=== PATIENT | female | born 1985 | race Caucasian/White ===

== ENCOUNTER 2016-07-03 13:46 | Emergency (ER) | payer OTHER ==
[2016-07-03 13:59] VITALS: BP 121/71; PULSE 76; TEMP 97.9; BMI 28.2
--- NOTE | 2016-07-09 10:30 | EKG ---
Test Reason : Blood Pressure : / mmHG Vent. Rate : 072 BPM Atrial Rate : 072 BPM P-R Int : 136 ms QRS Dur : 084 ms QT Int : 390 ms P-R-T Axes : 070 014 039 degrees QTc Int : 427 ms NORMAL SINUS RHYTHM INCOMPLETE RBBB WHEN COMPARED WITH ECG OF 11-DEC-2010 18:21, NO SIGNIFICANT CHANGE WAS FOUND Confirmed by SERA MASSEY MD ([id number]) on 07/09/2016 10:30:30 AM Referred By: Confirmed By:ESRA MASSEY MD
== END 2016-07-03 16:28 | disposition left against medical advice (07) ==
LOC: JER 13:46
DX: Z53.21 Procedure and treatment not carried out due to patient leaving prior to being seen by health care provider (principal)
CPT/HCPCS: 93005; 93010; 99281-25

== ENCOUNTER 2017-10-07 11:53 | Emergency (ER) | payer OTHER ==
[2017-10-07 12:04] VITALS: BP 127/88; PULSE 92; TEMP 101.5; BMI 32.5
[2017-10-07] MEDS ORDERED: ACETAMINOPHEN 500 MG TABLET (FP) PO ONE (12:20)
--- NOTE | 2017-10-07 12:25 | PDOC ---
History of Present Illness - General Chief Complaint: Urinary Problem Stated Complaint: BODYACHES, COLD SYMPTOMS Time Seen by Provider: 10/07/17 12:07 History Source: Patient Exam Limitations: No Limitations - History of Present Illness Travel History: No Initial Comments: 10/07/17 12:21 This is a 32-year-old woman without significant past medical history presents emergency Department with 1 week of dysuria and now with lower back pain. Patient states she's been febrile over this time and is been taking 400 mg of Motrin intermittently to help control pains and fever. Patient states she took some [id number] medication for symptomatically relief which has not helped her symptoms. She denies nausea, vomiting, abdominal pain, hematuria, rectal bleeding. Patient states she is currently menstruating. Past History - Past Medical History Allergies/Adverse Reactions: Allergies Allergy/AdvReac Type Severity Reaction Status Date / Time No Known Allergies Allergy Verified 10/07/17 12:00 Home Medications: Ambulatory Orders Cephalexin Monohydrate [Keflex -] 500 mg PO Q8H #42 capsule 10/07/17 COPD: No Other medical history: DENIES. - Surgical History Abdominal Surgery: Yes (TUBAL LIGATION) - Suicide/Smoking/Psychosocial Hx Smoking History: Never smoked Hx Alcohol Use: No Drug/Substance Use Hx: No Review of Systems - Review of Systems Able to Perform ROS?: Yes Is the patient limited Nepali proficient: No Constitutional: Yes: See HPI HEENTM: No: Symptoms Reported Respiratory: No: Symptoms reported Cardiac (ROS): No: Symptoms Reported ABD/GI: No: Symptoms Reported : Yes: See HPI Musculoskeletal: No: Symptoms Reported Integumentary: No: Symptoms Reported Neurological: No: Symptoms reported *Physical Exam - Vital Signs Last Vital Signs Temp Pulse Resp BP Pulse Ox 101.5 F H 92 H 15 127/88 98 10/07/17 12:00 10/07/17 12:00 10/07/17 12:00 10/07/17 12:00 10/07/17 12:00 - Physical Exam General Appearance: Yes: Appropriately Dressed. No: Apparent Distress HEENT: positive: Normal ENT Inspection Neck: positive: Trachea midline, Supple Respiratory/Chest: positive: Lungs Clear, Normal Breath Sounds. negative: Respiratory Distress, Accessory Muscle Use Cardiovascular: positive: Regular Rhythm, Regular Rate, S1, S2. negative: Edema , Murmur Gastrointestinal/Abdominal: positive: Normal Bowel Sounds, Soft. negative: Tender Musculoskeletal: positive: Normal Inspection. negative: CVA Tenderness Extremity: positive: Normal Inspection Integumentary: positive: Normal Color, Dry, Warm Neurologic: positive: Alert, Normal Response ED Treatment Course - LABORATORY CBC & Chemistry Diagram: 10/07/17 12:20 10/07/17 12:20 Medical Decision Making - Medical Decision Making 10/07/17 12:24 A/P: 32-year-old woman with 1 week of UTI symptoms Abdomen soft nontender nondistended. No CVA tenderness Currently febrile with temperature 101.5 in triage. Tylenol, UA, urine , urine culture, CBC, CMP 10/07/17 13:07 Urinalysis reveals 2+ leuk esterase, 3+ blood, trace ketones, 2+ protein and 1+ glucose. WBCs of 842, RBCs of 2067. Nitrates negative. CBC reveals a white count of 6200. BUN/creatinine are 9/0.7. Given patient's symptoms I will treat for pyelonephritis as an outpatient. *DC/Admit/Observation/Transfer Diagnosis at time of Disposition: Pyelonephritis - Discharge Dispostion Disposition: HOME Condition at time of disposition: Fair Decision to Admit order: No - Prescriptions Prescriptions: Cephalexin Monohydrate [Keflex -] 500 mg PO Q8H #42 capsule - Referrals Referrals: Shanice Lizarraga MD [Primary Care Provider] - - Patient Instructions Printed Discharge Instructions: DI for Kidney Infection Additional Instructions: Rest, drink lots of fluids: Teas, water, soups Avoid contact with others until fevers and symptoms resolved Lots of handwashing and good hygiene Continue [id number] medications for symptomatic relief Tylenol or Motrin for fever and pain Continue all of antibiotics until completed Followup with private physician in one week for repeat urinalysis/reevaluation Return to emergency department for worsened symptoms, fevers, dehydration - Post Discharge Activity
[2017-10-07 12:31] LABS: BASO % 0.6 % (0-2.0); HEMATOCRIT 32.6 % (32.4-45.2); HEMOGLOBIN 10.9 GM/dL (10.7-15.3); LYMPH % 7.6 % (8-40); MCH 25.6 pg (25.7-33.7); MCHC 33.5 g/dl (32.0-36.0); MEAN CELL VOLUME 76.6 fl (80-96); MEAN PLT VOLUME 9.1 fl (7.5-11.1); MONO % 2.4 % (3.8-10.2); NEUT % 88.4 % (42.8-82.8); PLATELET COUNT 177 K/MM3 (134-434); RBC 4.26 M/mm3 (3.60-5.2); WHITE BLOOD COUNT 6.2 K/mm3 (4.0-10.0)
[2017-10-07] MEDS ORDERED: ACETAMINOPHEN 325 MG TABLET (FP) ONE (12:31)
[2017-10-07 12:35] LABS: ADD RBC MORPHOLOGY YES
[2017-10-07 12:44] LABS: URINE APPEARANCE TURBID; URINE BILIRUBIN NEGATIVE (<2.0 mg/dL); URINE COLOR AMBER; URINE GLUCOSE (UA) 1+ (NEGATIVE); URINE KETONE TRACE (NEGATIVE); URINE NITRITE NEGATIVE (NEGATIVE); URINE UROBILINOGEN NEGATIVE mg/dL (0.2-1.0)
[2017-10-07 12:46] LABS: URINE LEUK ESTERASE 2+ (NEGATIVE); URINE PROTEIN 2+ (NEGATIVE)
[2017-10-07 12:47] LABS: URINE MUCUS FEW
[2017-10-07 12:54] LABS: ALBUMIN 3.7 g/dl (3.4-5.0); ANION GAP 9 (8-16); ANISOCYTOSIS 2+; BILIRUBIN,TOTAL 0.8 mg/dL (0.2-1.0); BLOOD UREA NITROGEN 9 mg/dL (7-18); CHLORIDE 105 mmol/L (98-107); CO2 24 mmol/L (21-32); CREATININE 0.7 mg/dL (0.55-1.02); GLUCOSE,RANDOM 132 mg/dL (74-106); MACROCYTOSIS 1+; PLATELET ESTIMATE ADEQUATE; POTASSIUM 3.4 mmol/L (3.5-5.1); SGOT/AST 75 U/L (15-37); SGPT/ALT 57 U/L (12-78); SODIUM 138 mmol/L (136-145); TOT PROT 6.9 g/dl (6.4-8.2)
[2017-10-07 12:54] LABS: HCG,QUALITATIVE URINE NEGATIVE
[2017-10-07 12:55] LABS: ALK PHOS 99 U/L (45-117)
== END 2017-10-07 13:14 | disposition home or self-care (01) ==
LOC: JERFT 11:53
DX: N10 Acute pyelonephritis (principal)
CPT/HCPCS: 36415; 80053; 81003; 81015; 84703; 85025; 87086; 87186; 99281-25

== ENCOUNTER 2021-04-26 15:16 | Emergency (ER) | payer OTHER ==
[2021-04-26 15:30] VITALS: BP 110/69; PULSE 65; TEMP 98.9; BMI 25.8
[2021-04-26] MEDS ORDERED: IBUPROFEN 600 MG TABLET (FP) PO ONE (16:30)
== END 2021-04-26 18:22 | disposition home or self-care (01) ==
LOC: JERFT 15:16
DX: S06.0X0A Concussion without loss of consciousness, initial encounter (principal); W10.9XXA Fall (on) (from) unspecified stairs and steps, initial encounter
CPT/HCPCS: 70450-TC; 99284-25

== ENCOUNTER 2022-03-02 16:15 | Emergency (ER) | payer OTHER ==
[2022-03-02 16:36] VITALS: BP 118/73; PULSE 73; RESP 18; TEMP 98.1; BMI 31.8
[2022-03-02] MEDS ORDERED: TETRACAINE 0.5% HCL 0.6ML DROPPER.BOTTLE OS ONE (17:29)
[2022-03-02] MEDS ORDERED: FLUORESCEIN NA 1 EA STRIP OS ONE (17:29)
[2022-03-02] MEDS ORDERED: TETRACAINE 0.5% OPHTH SOLN 2 ML BOTTLE ONE (17:50)
[2022-03-02] MEDS ORDERED: FLUORESCEIN NA 1 EA STRIP ONE (17:50)
== END 2022-03-02 18:47 | disposition home or self-care (01) ==
LOC: JER 16:15 → JERFT 16:15
DX: S05.02XA Injury of conjunctiva and corneal abrasion without foreign body, left eye, initial encounter (principal)
CPT/HCPCS: 99283-25

== ENCOUNTER 2022-06-02 14:25 | Emergency (ER) | payer OTHER ==
[2022-06-02 14:35] VITALS: BP 109/63; PULSE 61; RESP 18; TEMP 98; BMI 33.5
[2022-06-02 19:22] LABS: BASO % 1.2 % (0-2.0); EOS % 1.6 % (0-4.5); HEMATOCRIT 25.1 % (32.4-45.2); HEMOGLOBIN 7.3 GM/dL (10.7-15.3); LYMPH % 30.7 % (8-40); MCHC 29.2 g/dl (32.0-36.0); MEAN CELL VOLUME 65.7 fl (80-96); MEAN PLT VOLUME 8.7 fl (7.5-11.1); MONO % 7.9 % (3.8-10.2); NEUT % 58.6 % (42.8-82.8); PLATELET COUNT 322 10^3/uL (134-434); RBC 3.82 M/mm3 (3.60-5.2); WHITE BLOOD COUNT 3.5 K/mm3 (4.0-10.0)
[2022-06-02 19:28] LABS: MCH 19.2 pg (25.7-33.7)
[2022-06-02 19:40] LABS: CALCIUM 8.9 mg/dL (8.5-10.1)
[2022-06-02 19:41] LABS: ALBUMIN 3.8 g/dl (3.4-5.0); BLOOD UREA NITROGEN 12.1 mg/dL (7-18)
[2022-06-02 19:44] LABS: CREATININE 0.7 mg/dL (0.55-1.3)
[2022-06-02 19:46] LABS: BILIRUBIN,TOTAL 0.6 mg/dL (0.2-1); TOT PROT 7.4 g/dl (6.4-8.2)
[2022-06-02 21:12] LABS: ANISOCYTOSIS 1+; MACROCYTOSIS 0; PLATELET ESTIMATE NORMAL
== END 2022-06-02 20:44 | disposition home or self-care (01) ==
LOC: JER 14:25
DX: D64.9 Anemia, unspecified (principal)
CPT/HCPCS: 0241U-QW; 36415; 80053; 85025; 86850; 86900; 86901; 99283-25

== ENCOUNTER 2023-05-10 07:43 | Emergency (ER) | payer OTHER ==
[2023-05-10 08:22] VITALS: BP 122/87; PULSE 65; RESP 18; TEMP 98; BMI 24.7
[2023-05-10 09:35] LABS: BASO % 0.8 % (0-2.0); EOS % 0.6 % (0-4.5); HEMATOCRIT 35.3 % (32.4-45.2); HEMOGLOBIN 11.6 GM/dL (10.7-15.3); LYMPH % 23.5 % (8-40); MCH 27.9 pg (25.7-33.7); MCHC 32.8 g/dl (32.0-36.0); MEAN CELL VOLUME 84.8 fl (80-96); MEAN PLT VOLUME 8.9 fl (7.5-11.1); MONO % 6.3 % (3.8-10.2); NEUT % 68.8 % (42.8-82.8); PLATELET COUNT 251 10^3/uL (134-434); RBC 4.16 M/mm3 (3.60-5.2); RDW 14.4 % (11.6-15.6); WHITE BLOOD COUNT 4.8 K/mm3 (4.0-10.0)
[2023-05-10 09:56] LABS: ALBUMIN 3.4 g/dl (3.4-5.0); CALCIUM 8.1 mg/dL (8.5-10.1)
[2023-05-10 09:59] LABS: CREATININE 0.6 mg/dL (0.55-1.3)
[2023-05-10 10:01] LABS: BILIRUBIN,TOTAL 0.9 mg/dL (0.2-1); TOT PROT 6.9 g/dl (6.4-8.2)
[2023-05-10 10:16] LABS: PROTHROMBIN TIME (PATIENT) 11.6 SEC (9.7-13.0)
== END 2023-05-10 11:09 | disposition home or self-care (01) ==
LOC: JER 07:43
DX: K92.1 Melena (principal); Z20.822 Contact with and (suspected) exposure to COVID-19
CPT/HCPCS: 0241U-QW; 36415; 80053; 82272; 84703; 85025; 85610; 85730; 86850; 86900; 86901; 99283-25

== ENCOUNTER 2023-10-23 15:09 | Emergency (ER) | payer OTHER ==
[2023-10-23 15:32] VITALS: BP 107/55; PULSE 56; RESP 16; TEMP 98.2; BMI 32.5
[2023-10-23 16:58] LABS: HCG,QUALITATIVE URINE Negative
[2023-10-23 17:06] LABS: URINE APPEARANCE CLEAR; URINE BILIRUBIN NEGATIVE (NEGATIVE); URINE COLOR YELLOW; URINE GLUCOSE (UA) NEGATIVE (NEGATIVE); URINE KETONE NEGATIVE (NEGATIVE); URINE LEUK ESTERASE 1+ (NEGATIVE); URINE NITRITE NEGATIVE (NEGATIVE); URINE PROTEIN NEGATIVE (NEGATIVE); URINE UROBILINOGEN 0.2 mg/dL (0.2-1.0)
[2023-10-23] MEDS ORDERED: CEPHALEXIN MONOHYDRATE 500 MG CAPSULE (UD) PO ONE (17:37)
[2023-10-23] MEDS ORDERED: ACETAMINOPHEN 500 MG TABLET (FP) PO ONE (17:42)
[2023-10-23] MEDS ORDERED: ACETAMINOPHEN 500 MG TABLET (FP) ONE (17:59)
[2023-10-23] MEDS ORDERED: CEPHALEXIN MONOHYDRATE 500 MG CAPSULE (UD) ONE (17:59)
[2023-10-23 18:50] LABS: EPI CELLS 11.8 /uL (0-25.1); HYALINE CASTS 0 /uL (0-3.1); URINE BACTERIA 297.2 /uL (0-1359); URINE RBC 3.6 /uL (0-23.9); URINE WBC 85.9 /uL (0-25.8)
[2023-10-23 18:51] LABS: YEAST FEW (NEGATIVE)
== END 2023-10-23 18:06 | disposition home or self-care (01) ==
LOC: JERFT 15:09
DX: N39.0 Urinary tract infection, site not specified (principal); R30.0 Dysuria; M54.50 Low back pain, unspecified; M54.6 Pain in thoracic spine
CPT/HCPCS: 81003; 84703; 87086; 87186; 99283-25

== ENCOUNTER 2024-12-17 15:08 | Emergency (ER) | payer OTHER ==
[2024-12-17 15:15] VITALS: BP 139/81; PULSE 70; RESP 18; TEMP 97.9; BMI 34.8
[2024-12-17 16:03] LABS: HCG,QUALITATIVE URINE Negative
[2024-12-17 16:04] LABS: URINE APPEARANCE CLEAR; URINE BILIRUBIN NEGATIVE (NEGATIVE); URINE COLOR YELLOW; URINE GLUCOSE (UA) NEGATIVE (NEGATIVE); URINE KETONE NEGATIVE (NEGATIVE); URINE LEUK ESTERASE 1+ (NEGATIVE); URINE NITRITE NEGATIVE (NEGATIVE); URINE PROTEIN NEGATIVE (NEGATIVE); URINE UROBILINOGEN 0.2 mg/dL (0.2-1.0)
[2024-12-17 16:13] LABS: EPI CELLS 28.7 /uL (0-25.1); HYALINE CASTS 0.12 /uL (0-3.1); URINE BACTERIA 435.4 /uL (0-1359); URINE RBC 145.0 /uL (0-23.9); URINE WBC 74.1 /uL (0-25.8)
[2024-12-17] MEDS ORDERED: CEPHALEXIN MONOHYDRATE 500 MG CAPSULE (UD) ONE (16:48)
[2024-12-17] MEDS: CEPHALEXIN MONOHYDRATE 500 MG CAPSULE (UD) PO ONE (16:50)
[2024-12-17] MEDS: CEFUROXIME AXETIL 250 MG TABLET PO ONE (16:51)
== END 2024-12-17 16:51 | disposition home or self-care (01) ==
LOC: JER 15:08 → JERFT 15:08
DX: N30.90 Cystitis, unspecified without hematuria (principal); M54.50 Low back pain, unspecified; R35.0 Frequency of micturition; R39.15 Urgency of urination
CPT/HCPCS: 81003; 84703; 87086; 99283-25